=== PATIENT | female | born 1990 | race African-American/Black ===

== ENCOUNTER 2017-02-04 17:25 | Emergency (ER) | payer SELFPAY ==
[~2017-02-04] VITALS: Ht 172.7 cm; Wt 116.0 kg
[~2017-02-04 17:25] MED LIST: BACTRIM DS1 TAB OR; CEPHALEXIN500 MG OR; CIPRO500 MG OR; CLARITIN10 MG OR; KEFLEX500 MG OR; LORTAB 5 OR; NAPROSYN500 MG OR; NO HOME MEDS; PROMETHAZINE25 MG RE; ULTRAM50 M1 OR; ZITHROMAX250 MG OR; ZOFRAN4 MG OR
[2017-02-04] MEDS ORDERED: ALLEGRA180 MG PO (17:37)
[2017-02-04] MEDS ORDERED: KEFLEX500 MG PO (18:48)
[2017-02-04 20:27] VITALS: BP 121/78
== END 2017-02-04 20:27 | disposition home or self-care (01) | DRG 153 ==
LOC: ED 17:25
DX: H66.93 Otitis media, unspecified, bilateral (principal)

== ENCOUNTER 2017-10-09 06:03 | Emergency (ER) | payer SELFPAY ==
[~2017-10-09] VITALS: Ht 172.7 cm; Wt 135.6 kg
[~2017-10-09 06:03] MED LIST changes: +ALLEGRA180 MG PO; +KEFLEX500 MG PO
[2017-10-09] MEDS ORDERED: ERYTHROMYCIN B500 MG PO (06:56)
[2017-10-09] MEDS ORDERED: FLONASE AL50 MCG/ACT (06:56)
[2017-10-09 07:17] VITALS: BP 119/76
[2017-10-09] MEDS ORDERED: ZPAK PO (13:47)
== END 2017-10-09 07:15 | disposition home or self-care (01) | DRG 153 ==
LOC: ED 06:03
DX: H66.91 Otitis media, unspecified, right ear (principal); J01.90 Acute sinusitis, unspecified; R09.81 Nasal congestion; M79.1 Myalgia